=== PATIENT | female | born 1975 | race Caucasian/White ===

== ENCOUNTER 2021-06-06 05:43 | Day surgery (SDC) | payer BC ==
[2021-06-04 16:02] VITALS: BMI 30.6
[2021-06-06] MEDS ORDERED: Lidocaine 1% MPF 2 ML VIAL ONE (06:26)
[2021-06-06] MEDS ORDERED: Midazolam HCl 2 mg/2 ml Vial ONE (06:28)
[2021-06-06] MEDS ORDERED: Lidocaine 1% PF 5 ML VIAL ONE (06:28)
[2021-06-06] MEDS ORDERED: Fentanyl 100 MCG/2 ML VIAL ONE (06:28)
[2021-06-06] MEDS ORDERED: PROPOFOL 20 ML ONE (06:28)
[2021-06-06] MEDS ORDERED: Ondansetron PF 4 MG/2 ML Vial ONE (06:28)
[2021-06-06] MEDS ORDERED: Dexamethasone 4 mg/ml Vial ONE (06:28)
[2021-06-06] MEDS ORDERED: EPINEPHrine 1 MG/ML AMP ONE (06:34)
[2021-06-06] MEDS ORDERED: Bupivacaine PF 0.5% 30 ML VIAL ONE (06:35)
[2021-06-06] MEDS ORDERED: ceFAZolin 2 GM/Dextrose 50 ML IVPB ONE (06:50)
[2021-06-06] MEDS ORDERED: HYDROcodone/Acetaminophen 5/325 mg Tablet PO PRN (08:09)
== END 2021-06-06 08:28 | disposition home or self-care (01) ==
LOC: CSHSDC 05:43
PROVIDERS: ATTEND Surgery
PROC: 0JH60WZ Insertion of Totally Implantable Vascular Access Device into Chest Subcutaneous Tissue and Fascia, Open Approach (ICD-10-PCS; principal; 2021-06-06)
PROC: 05HM33Z Insertion of Infusion Device into Right Internal Jugular Vein, Percutaneous Approach (ICD-10-PCS; principal; 2021-06-06)
DX: C50.912 Malignant neoplasm of unspecified site of left female breast (principal); I10 Essential (primary) hypertension; E89.0 Postprocedural hypothyroidism; Z92.3 Personal history of irradiation; Z79.890 Hormone replacement therapy; Z79.899 Other long term (current) drug therapy; Z97.5 Presence of (intrauterine) contraceptive device
CPT/HCPCS: C1788; J0171; J0690; J1100; J1642; J2250; J2405; J2704; J3010; S0020

== ENCOUNTER 2022-04-03 13:25 | Outpatient (CLI) | payer BC | END 2022-04-03 13:26 | disposition home or self-care (01) | LOC: CSHRAD 13:25 | PROVIDERS: ATTEND Internal Medicine Hematology & Oncology | DX: R00.2 Palpitations (principal); R60.9 Edema, unspecified; R06.02 Shortness of breath | CPT/HCPCS: 93005; 93010 ==